=== PATIENT | male | born 1985 | race Asian ===

== ENCOUNTER 2019-09-21 20:28 | Inpatient (IN) | payer OTHER ==
[~2019-09-21] VITALS: Ht 162.6 cm; Wt 87.0 kg
[~2019-09-21 20:28] MED LIST: AMLO5TAB9 PO; ASPI-728 PO; CARV12 PO; DSS100 PO; FURO40 PO; GLIP5 PO; LANCET; LOSA50TA37 PO; SPIR50 PO; TEST STRIPS; [UNRECOGNIZED DRUG - CODE] MC
[2019-09-21] MEDS ORDERED: METOPROLOL TARTRATE 5 MG/5 ML VIAL IVP ONE (20:45)
[2019-09-21] MEDS ORDERED: SODIUM CHLORIDE 0.9% 1,000 ML IV ONE (21:00)
[2019-09-21 21:10] LABS: CALCIUM, TOTAL 9.1 mg/dL (8.8-10.5); CREATININE 2.58 mg/dL (0.60-1.30)
[2019-09-21 21:13] LABS: ALBUMIN 2.8 g/dL (3.4-5.0); BILIRUBIN,TOTAL 0.3 mg/dL (0.1-1.0); TOTAL PROTEIN, SERUM 7.5 g/dL (6.4-8.2)
[2019-09-21 21:16] LABS: EOSINOPHILS % (AUTO) 0 % (1.0-6.0); HEMATOCRIT 52.1 % (41-53); HEMOGLOBIN 16.3 g/dL (13.5-17.5); LYMPHOCYTES # (AUTO) 2.5 K/uL (1.0-4.8); LYMPHOCYTES % (AUTO) 17.1 % (22.0-44.0); MEAN CORPUSCULAR HEMOGLOBIN 27.8 pg (26.0-34.0); MEAN CORPUSCULAR HGB CONC 31.4 G/dL (31.0-37.0); MEAN CORPUSCULAR VOLUME 89 fL (80-100); MONOCYTES # (AUTO) 0.6 K/uL (0.1-1.0); MONOCYTES % (AUTO) 4.2 % (2.0-9.0); NEUTROPHILS # (AUTO) 11.5 K/uL (1.8-7.7); NEUTROPHILS % (AUTO) 77.7 % (40.0-70.0); PLATELET COUNT (AUTO) 378 K/uL (150-450); RED BLOOD CELL COUNT(AUTO) 5.89 MIL/uL (4.50-5.90); RED CELL DISTRIBUTION WIDTH 14.2 % (11.5-14.5)
[2019-09-21] MEDS ORDERED: POTASSIUM CHL 20 MEQ/0.45% NS 1,000 ML IV PRN (21:30)
[2019-09-21] MEDS ORDERED: INSULIN REGULAR, HUMAN 100 UNITS/ML IVP PRN (21:30)
[2019-09-21] MEDS ORDERED: INSULIN REGULAR, HUMAN 100 UNITS in SODIUM CHLORIDE 0.9% 99 ML IV PRN ×2 (21:30)
[2019-09-21] MEDS ORDERED: SODIUM CHLORIDE 0.45% 1,000 ML IV PRN (21:30)
[2019-09-21] MEDS ORDERED: DEXTROSE 5%-0.45% SODIUM CHL 1,000 ML IV PRN (21:30)
[2019-09-21] MEDS ORDERED: DEXTROSE 50%-WATER 25 GM/50 ML SYRINGE IVP PRN (21:30)
[2019-09-21] MEDS ORDERED: ONDANSETRON HCL 4 MG/2 ML VIAL IVP ONE (21:30)
[2019-09-21] MEDS ORDERED: SODIUM CHLORIDE 0.9% 1,000 ML IV SCH (21:30)
[2019-09-21 21:33] LABS: ACETONE,BLOOD TRACE (NEGATIVE)
[2019-09-21 22:51] LABS: BASOPHILS % (AUTO) 0.5 % (0.0-2.0); EOSINOPHILS % (AUTO) 0 % (1.0-6.0); HEMATOCRIT 51.5 % (41-53); HEMOGLOBIN 15.5 g/dL (13.5-17.5); LYMPHOCYTES # (AUTO) 1.1 K/uL (1.0-4.8); LYMPHOCYTES % (AUTO) 6.2 % (22.0-44.0); MEAN CORPUSCULAR HEMOGLOBIN 26.7 pg (26.0-34.0); MEAN CORPUSCULAR HGB CONC 30.2 G/dL (31.0-37.0); MEAN CORPUSCULAR VOLUME 88 fL (80-100); MONOCYTES # (AUTO) 0.8 K/uL (0.1-1.0); MONOCYTES % (AUTO) 4.3 % (2.0-9.0); NEUTROPHILS # (AUTO) 16.2 K/uL (1.8-7.7); PLATELET COUNT (AUTO) 336 K/uL (150-450); RED BLOOD CELL COUNT(AUTO) 5.82 MIL/uL (4.50-5.90); RED CELL DISTRIBUTION WIDTH 14.5 % (11.5-14.5)
[2019-09-21 23:08] LABS: GLUCOSE,POINT OF CARE > 600 MG/DL (70-110)
[2019-09-21 23:08] LABS: GLUCOSE,POINT OF CARE > 600 MG/DL (70-110)
[2019-09-21 23:24] LABS: ALBUMIN 2.5 g/dL (3.4-5.0); BILIRUBIN,TOTAL 0.3 mg/dL (0.1-1.0); CALCIUM, TOTAL 9.2 mg/dL (8.8-10.5); CREATININE 2.49 mg/dL (0.60-1.30); POTASSIUM 4.1 mmol/L (3.5-5.1); TOTAL PROTEIN, SERUM 6.9 g/dL (6.4-8.2)
[2019-09-21 23:55] LABS: APPEARANCE,URINE CLEAR (CLEAR); BILIRUBIN,URINE NEGATIVE (NEGATIVE); GLUCOSE, URINE (UA) >=1000 mg/dL (NEGATIVE); KETONES,URINE 15 mg/dL (NEGATIVE); LEUKOCYTE ESTERASE ,URINE NEGATIVE (NEGATIVE); NITRATE,URINE NEGATIVE (NEGATIVE); OCCULT BLOOD,URINE TRACE (NEGATIVE); PH,URINE 5.5 (5.0-8.0); PROTEIN,URINE SEE CONFIRM (NEGATIVE); UROBILINOGEN,URINE 0.2 mg/dL (<=1.0)
[2019-09-22 00:15] LABS: BACTERIA,URINE None Seen /HPF (None Seen); RBC,URINE 0-2 /HPF (0-2)
[2019-09-22 00:16] LABS: SQUAMOUS EPITHELIAL CELL,UR None Seen /LPF (None Seen); SULFOSALICYLIC ACID,URINE 4+ (Negative)
[2019-09-22 00:29] LABS: GLUCOSE,POINT OF CARE 593 MG/DL (70-110)
[2019-09-22 00:40] LABS: AMPHET/METH SCREEN,URINE NEGATIVE (NEGATIVE); BARBITURATE SCREEN, URINE NEGATIVE (NEGATIVE); BENZODIAZEPINES SCREEN,URINE NEGATIVE (NEGATIVE); CANNABINOID SCREEN,URINE NEGATIVE (NEGATIVE); COCAINE SCREEN,URINE NEGATIVE (NEGATIVE); METHADONE SCREEN, URINE NEGATIVE (NEGATIVE); OPIATE SCREEN,URINE NEGATIVE (NEGATIVE)
[2019-09-22 00:41] LABS: PHENCYCLIDINE SCREEN,URINE NEGATIVE (NEGATIVE)
[2019-09-22 00:47] LABS: CALCIUM, TOTAL 9.1 mg/dL (8.8-10.5); CREATININE 2.42 mg/dL (0.60-1.30)
[2019-09-22 01:39] LABS: GLUCOSE,POINT OF CARE 465 MG/DL (70-110)
[2019-09-22 01:55] LABS: ABG A-A DIFF O2 21.6 mmHg (10-20.0); ABG BASE EXCESS -3.2 mmol/L (-2.0-3.0); ABG CARBOXYHEMOGLOBIN 0.4 % (0.0-1.5); ABG HCO3 22.6 mmol/L (22.0-26.0); ABG METHEMOGLOBIN 0.5 % (0.0-1.5); ABG OXYGEN SATURATION 97.1 % (95.0-98.0); ABG OXYHEMOGLOBIN 96.2 % (94.0-100.0); ABG PCO2 32 mmHg (35-45); ABG PH 7.431 (7.350-7.450); ABG TOTAL HEMOGLOBIN 15.5 G/dL (12.0-18.0); PO2, ARTERIAL BG 89.3 mmHg (92.0-100.0); SITE, BLOOD GAS RT RADIAL; SOURCE, BLOOD GAS ARTERIAL; TEMPERATURE, FAHRENHEIT, BG 98.6 FAHREN (96.0-98.6)
[2019-09-22 02:34] LABS: GLUCOSE,POINT OF CARE 276 MG/DL (70-110)
[2019-09-22 03:00] LABS: CALCIUM, TOTAL 8.7 mg/dL (8.8-10.5); CREATININE 2.06 mg/dL (0.60-1.30); POTASSIUM 3.6 mmol/L (3.5-5.1)
[2019-09-22 03:39] LABS: GLUCOSE,POINT OF CARE 124 MG/DL (70-110)
[2019-09-22 04:47] LABS: GLUCOSE,POINT OF CARE 107 MG/DL (70-110)
[2019-09-22] MEDS ORDERED: ONDANSETRON HCL 4 MG/2 ML VIAL IVP PRN (05:00)
[2019-09-22] MEDS ORDERED: 0.9% SODIUM CHLORIDE 10 ML SYRINGE IVP PRN (05:00)
[2019-09-22] MEDS ORDERED: ACETAMINOPHEN 325 MG TABLET PO PRN (05:00)
[2019-09-22] MEDS ORDERED: MAGNESIUM HYDROXIDE SUSPENSION 30 ML UDCUP PO PRN (05:00)
[2019-09-22] MEDS ORDERED: OxyCODONE HCL/ACETAMINOPHEN 5-325 MG TABLET PO PRN ×2 (05:00)
[2019-09-22 05:43] LABS: GLUCOSE,POINT OF CARE 73 MG/DL (70-110)
[2019-09-22 06:21] LABS: GLUCOSE,POINT OF CARE 102 MG/DL (70-110)
[2019-09-22] MEDS ORDERED: POTASSIUM CHL 10 MEQ/WATER 50 ML IV PRN (06:45)
[2019-09-22] MEDS: SODIUM CHLORIDE 0.9% 1,000 ML IV SCH ×2 (06:45→16:45)
[2019-09-22] MEDS: POTASSIUM CHLORIDE 40 MEQ in SODIUM CHLORIDE 0.45% 1,000 ML IV PRN ×2 (06:45→13:28)
[2019-09-22 06:48] LABS: GLUCOSE,POINT OF CARE 123 MG/DL (70-110)
[2019-09-22 07:00] LABS: CALCIUM, TOTAL 8.4 mg/dL (8.8-10.5); CREATININE 1.76 mg/dL (0.60-1.30)
[2019-09-22 07:04] LABS: BILIRUBIN,TOTAL 0.2 mg/dL (0.1-1.0); MAGNESIUM 2.2 mg/dL (1.80-2.40); PHOSPHORUS 3.6 mg/dL (2.5-4.9); TOTAL PROTEIN, SERUM 5.4 g/dL (6.4-8.2)
[2019-09-22 07:50] LABS: GLUCOSE,POINT OF CARE 135 MG/DL (70-110)
[2019-09-22] MEDS: ASPIRIN 81 MG CHEWABLE TABLET PO SCH (08:34)
[2019-09-22] MEDS: AmLODIPine BESYLATE 5 MG TABLET PO SCH ×2 (08:35→20:30)
[2019-09-22] MEDS: CARVEDILOL 12.5 MG TABLET PO SCH ×3 (09:00→21:43)
[2019-09-22] MEDS ORDERED: LevETIRAcetam 500 MG TABLET PO SCH (09:00)
[2019-09-22] MEDS ORDERED: DOCUSATE SODIUM 100 MG CAPSULE PO SCH (09:00)
[2019-09-22] MEDS ORDERED: LOSARTAN POTASSIUM 50 MG TABLET PO SCH (09:00)
[2019-09-22 09:02] LABS: GLUCOSE,POINT OF CARE 94 MG/DL (70-110)
[2019-09-22 10:02] LABS: GLUCOSE,POINT OF CARE 76 MG/DL (70-110)
[2019-09-22 10:24] LABS: GLUCOSE,POINT OF CARE 78 MG/DL (70-110)
[2019-09-22 11:02] LABS: GLUCOSE,POINT OF CARE 107 MG/DL (70-110)
[2019-09-22] MEDS ORDERED: DOCUSATE SODIUM 100 MG CAPSULE PO PRN (11:15)
[2019-09-22] MEDS: PANTOPRAZOLE SODIUM 40 MG DR TABLET PO SCH (11:48)
[2019-09-22] MEDS ORDERED: HydrALAZINE HCL 20 MG/ML VIAL IVP PRN ×2 (12:00)
[2019-09-22 12:24] LABS: CALCIUM, TOTAL 8.2 mg/dL (8.8-10.5); CREATININE 1.57 mg/dL (0.60-1.30); POTASSIUM 3.7 mmol/L (3.5-5.1)
[2019-09-22 12:27] LABS: GLUCOSE,POINT OF CARE 139 MG/DL (70-110)
[2019-09-22 12:27] LABS: GLUCOSE,POINT OF CARE 137 MG/DL (70-110)
[2019-09-22 13:47] LABS: GLUCOSE,POINT OF CARE 125 MG/DL (70-110)
[2019-09-22 15:43] LABS: GLUCOSE,POINT OF CARE 54 MG/DL (70-110)
[2019-09-22 15:43] LABS: GLUCOSE,POINT OF CARE 140 MG/DL (70-110)
[2019-09-22 15:43] LABS: GLUCOSE,POINT OF CARE 65 MG/DL (70-110)
[2019-09-22] MEDS ORDERED: DEXTROSE 50%-WATER 25 GM/50 ML SYRINGE IVP PRN (16:00)
[2019-09-22] MEDS ORDERED: SODIUM CHLORIDE 0.9% 1,000 ML IV ONE (16:00)
[2019-09-22] MEDS: INSULIN GLARGINE,HUM.REC.ANLOG 100 UNITS/ML SQ SCH ×2 (16:43→21:36)
[2019-09-22] MEDS: INSULIN LISPRO 100 UNITS/ML SQ PRN (17:37)
[2019-09-22 17:44] LABS: GLUCOSE,POINT OF CARE 152 MG/DL (70-110)
[2019-09-22 18:24] LABS: CALCIUM, TOTAL 8.3 mg/dL (8.8-10.5); CREATININE 1.55 mg/dL (0.60-1.30)
[2019-09-22 18:53] LABS: GLUCOSE,POINT OF CARE 229 MG/DL (70-110)
[2019-09-22 19:09] LABS: APPEARANCE,URINE CLOUDY (CLEAR); BILIRUBIN,URINE NEGATIVE (NEGATIVE); GLUCOSE, URINE (UA) 250 mg/dL (NEGATIVE); KETONES,URINE NEGATIVE (NEGATIVE); LEUKOCYTE ESTERASE ,URINE NEGATIVE (NEGATIVE); NITRATE,URINE NEGATIVE (NEGATIVE); OCCULT BLOOD,URINE MODERATE (NEGATIVE); PROTEIN,URINE SEE CONFIRM (NEGATIVE); UROBILINOGEN,URINE 0.2 mg/dL (<=1.0)
[2019-09-22 19:13] LABS: CREATININE,URINE RANDOM 34.6 mg/dL (30.0-125.0); PROTEIN,URINE RANDOM 211 mg/dL (0-11.9)
[2019-09-22 19:18] LABS: BACTERIA,URINE None Seen /HPF (None Seen); RBC,URINE 0-2 /HPF (0-2)
[2019-09-22 19:20] LABS: SQUAMOUS EPITHELIAL CELL,UR None Seen /LPF (None Seen); URIC ACID CRYSTALS,URINE Rare /LPF (None Seen); WBC,URINE 0-2 /HPF (0-5)
[2019-09-22 19:56] LABS: GLUCOSE,POINT OF CARE 257 MG/DL (70-110)
[2019-09-22] MEDS ORDERED: INSULIN GLARGINE,HUM.REC.ANLOG 100 UNITS/ML SQ SCH (21:00)
[2019-09-22 21:14] LABS: GLUCOSE,POINT OF CARE 264 MG/DL (70-110)
[2019-09-22] MEDS: LevETIRAcetam 500 MG in DEXTROSE 5%-WATER 100 ML IV SCH (21:29)
[2019-09-22 21:34] LABS: GLUCOSE,POINT OF CARE 260 MG/DL (70-110)
[2019-09-22 23:45] LABS: GLUCOSE,POINT OF CARE 238 MG/DL (70-110)
[2019-09-23] MEDS: POTASSIUM CHLORIDE 20 MEQ ER TABLET PO PRN (00:13)
[2019-09-23 01:38] LABS: GLUCOSE,POINT OF CARE 220 MG/DL (70-110)
[2019-09-23] MEDS: SODIUM CHLORIDE 0.9% 1,000 ML IV SCH ×3 (01:53→23:59)
[2019-09-23 03:28] LABS: GLUCOSE,POINT OF CARE 184 MG/DL (70-110)
[2019-09-23 04:56] LABS: BASOPHILS % (AUTO) 1.1 % (0.0-2.0); HEMATOCRIT 43.4 % (41-53); HEMOGLOBIN 14.1 g/dL (13.5-17.5); LYMPHOCYTES # (AUTO) 3.4 K/uL (1.0-4.8); LYMPHOCYTES % (AUTO) 29.4 % (22.0-44.0); MEAN CORPUSCULAR HEMOGLOBIN 27.3 pg (26.0-34.0); MEAN CORPUSCULAR HGB CONC 32.5 G/dL (31.0-37.0); MEAN CORPUSCULAR VOLUME 84 fL (80-100); MONOCYTES # (AUTO) 0.6 K/uL (0.1-1.0); NEUTROPHILS # (AUTO) 7.3 K/uL (1.8-7.7); NEUTROPHILS % (AUTO) 63.5 % (40.0-70.0); PLATELET COUNT (AUTO) 279 K/uL (150-450); RED BLOOD CELL COUNT(AUTO) 5.16 MIL/uL (4.50-5.90); RED CELL DISTRIBUTION WIDTH 13.9 % (11.5-14.5)
[2019-09-23 05:23] LABS: CALCIUM, TOTAL 8.2 mg/dL (8.8-10.5); CREATININE 1.4 mg/dL (0.60-1.30); FREE T4 (FREE THYROXINE) 1.03 ng/dL (0.76-1.46); POTASSIUM 3.8 mmol/L (3.5-5.1); THYROID STIMULATING HORMONE 1.31 uIU/mL (0.36-3.74)
[2019-09-23 06:23] LABS: GLUCOSE,POINT OF CARE 140 MG/DL (70-110)
[2019-09-23 09:09] LABS: GLUCOSE,POINT OF CARE 104 MG/DL (70-110)
[2019-09-23] MEDS: ASPIRIN 81 MG CHEWABLE TABLET PO SCH (09:26)
[2019-09-23] MEDS: AmLODIPine BESYLATE 5 MG TABLET PO SCH ×2 (09:26→21:18)
[2019-09-23] MEDS: PANTOPRAZOLE SODIUM 40 MG DR TABLET PO SCH (09:27)
[2019-09-23] MEDS: INSULIN GLARGINE,HUM.REC.ANLOG 100 UNITS/ML SQ SCH ×2 (09:28→21:22)
[2019-09-23] MEDS: LevETIRAcetam 500 MG in DEXTROSE 5%-WATER 100 ML IV SCH (09:50)
[2019-09-23] MEDS: CARVEDILOL 12.5 MG TABLET PO SCH ×2 (11:11→21:18)
[2019-09-23] MEDS: INSULIN LISPRO 100 UNITS/ML SQ PRN ×2 (13:36→21:23)
[2019-09-23 16:20] VITALS: BP 148/104
[2019-09-23] MEDS: LOSARTAN POTASSIUM 25 MG TABLET PO SCH (17:13)
[2019-09-23 19:53] VITALS: BP 157/99
[2019-09-23] MEDS: ATORVASTATIN CALCIUM 20 MG TABLET PO SCH (21:18)
[2019-09-23 21:20] LABS: GLUCOMETER DEV NAME(LOC) 5N.2; GLUCOSE,POINT OF CARE 390 MG/DL (70-110)
[2019-09-23 23:33] VITALS: BP 153/110
[2019-09-24] VITALS (7 sets, daily range): BP systolic 142–158; BP diastolic 89–109
[2019-09-24] MEDS: CARVEDILOL 12.5 MG TABLET PO SCH ×2 (05:23→20:39)
[2019-09-24 05:50] LABS: GLUCOMETER DEV NAME(LOC) 5S.2A; GLUCOSE,POINT OF CARE 51 MG/DL (70-110)
[2019-09-24 05:51] LABS: GLUCOMETER DEV NAME(LOC) 5S.2A; GLUCOSE,POINT OF CARE 41 MG/DL (70-110)
[2019-09-24 05:51] LABS: GLUCOMETER DEV NAME(LOC) 5S.2A; GLUCOSE,POINT OF CARE 172 MG/DL (70-110)
[2019-09-24 05:55] LABS: GLUCOMETER DEV NAME(LOC) 5N.2; GLUCOSE,POINT OF CARE 100 MG/DL (70-110)
[2019-09-24 06:47] LABS: BASOPHILS % (AUTO) 0.8 % (0.0-2.0); EOSINOPHILS % (AUTO) 0.8 % (1.0-6.0); HEMATOCRIT 44.9 % (41-53); HEMOGLOBIN 14.4 g/dL (13.5-17.5); LYMPHOCYTES # (AUTO) 2.6 K/uL (1.0-4.8); LYMPHOCYTES % (AUTO) 22.9 % (22.0-44.0); MEAN CORPUSCULAR HEMOGLOBIN 27.1 pg (26.0-34.0); MEAN CORPUSCULAR VOLUME 85 fL (80-100); MONOCYTES # (AUTO) 0.8 K/uL (0.1-1.0); MONOCYTES % (AUTO) 7.2 % (2.0-9.0); NEUTROPHILS # (AUTO) 7.8 K/uL (1.8-7.7); NEUTROPHILS % (AUTO) 68.3 % (40.0-70.0); PLATELET COUNT (AUTO) 291 K/uL (150-450); RED CELL DISTRIBUTION WIDTH 14.1 % (11.5-14.5)
[2019-09-24 07:04] LABS: ANION GAP 11 mmol/L (8-16); CALCIUM, TOTAL 8.1 mg/dL (8.8-10.5); CARBON DIOXIDE 23 mmol/L (22-29); CHLORIDE 105 mmol/L (98-107); CREATININE 1.33 mg/dL (0.60-1.30); GLOMERULAR FILTR. RATE CALC > 60 mL/min (>60); GLUCOSE,RANDOM 106 mg/dL (70-110); PHOSPHORUS 3.7 mg/dL (2.5-4.9); POTASSIUM 3.2 mmol/L (3.5-5.1); SODIUM SERUM 139 mmol/L (136-145); UREA NITROGEN, BLOOD 15 mg/dL (7-18)
[2019-09-24] MEDS: PANTOPRAZOLE SODIUM 40 MG DR TABLET PO SCH (08:18)
[2019-09-24] MEDS: AmLODIPine BESYLATE 5 MG TABLET PO SCH ×2 (08:18→20:39)
[2019-09-24] MEDS: ASPIRIN 81 MG CHEWABLE TABLET PO SCH (08:18)
[2019-09-24] MEDS: LOSARTAN POTASSIUM 25 MG TABLET PO SCH (08:18)
[2019-09-24] MEDS: POTASSIUM CHLORIDE 20 MEQ ER TABLET PO PRN (08:45)
[2019-09-24] MEDS: INSULIN GLARGINE,HUM.REC.ANLOG 100 UNITS/ML SQ SCH ×2 (08:50→20:45)
[2019-09-24] MEDS ORDERED: POTASSIUM CHLORIDE 20 MEQ ER TABLET PO ONE ×2 (09:30→10:00)
[2019-09-24] MEDS ORDERED: MAGNESIUM SULFATE 2 GM/WATER 50 ML IV ONE (10:00)
[2019-09-24 11:45] LABS: GLUCOMETER DEV NAME(LOC) 5N.2; GLUCOSE,POINT OF CARE 214 MG/DL (70-110)
[2019-09-24 11:45] LABS: GLUCOMETER DEV NAME(LOC) 5N.2; GLUCOSE,POINT OF CARE 139 MG/DL (70-110)
[2019-09-24] MEDS: INSULIN LISPRO 100 UNITS/ML SQ PRN ×3 (12:18→20:46)
[2019-09-24] MEDS ORDERED: GADOBUTROL 1 MMOL/ML 10 ML VIAL IVP ONE (14:28)
[2019-09-24 14:46] LABS: GLUCOSE,POINT OF CARE 221 MG/DL (70-110)
[2019-09-24 18:14] LABS: GLUCOMETER DEV NAME(LOC) 5N.2; GLUCOSE,POINT OF CARE 155 MG/DL (70-110)
[2019-09-24] MEDS: ATORVASTATIN CALCIUM 20 MG TABLET PO SCH (20:39)
[2019-09-24] MEDS: LevETIRAcetam 500 MG TABLET PO SCH (20:39)
[2019-09-25 05:01] VITALS: BP 155/97
[2019-09-25] MEDS: INSULIN LISPRO 100 UNITS/ML SQ PRN ×2 (06:33→12:43)
[2019-09-25 07:30] LABS: BASOPHILS % (AUTO) 0.5 % (0.0-2.0); EOSINOPHILS % (AUTO) 1.3 % (1.0-6.0); HEMATOCRIT 44.3 % (41-53); HEMOGLOBIN 14.6 g/dL (13.5-17.5); LYMPHOCYTES # (AUTO) 1.2 K/uL (1.0-4.8); LYMPHOCYTES % (AUTO) 14.9 % (22.0-44.0); MEAN CORPUSCULAR HEMOGLOBIN 27.7 pg (26.0-34.0); MEAN CORPUSCULAR HGB CONC 32.9 G/dL (31.0-37.0); MEAN CORPUSCULAR VOLUME 84 fL (80-100); MONOCYTES # (AUTO) 0.5 K/uL (0.1-1.0); MONOCYTES % (AUTO) 6.3 % (2.0-9.0); PLATELET COUNT (AUTO) 306 K/uL (150-450); RED BLOOD CELL COUNT(AUTO) 5.26 MIL/uL (4.50-5.90); RED CELL DISTRIBUTION WIDTH 14.1 % (11.5-14.5)
[2019-09-25 08:06] LABS: ALBUMIN 1.8 g/dL (3.4-5.0); BILIRUBIN,TOTAL 0.4 mg/dL (0.1-1.0); CALCIUM, TOTAL 8.8 mg/dL (8.8-10.5); CREATININE 1.63 mg/dL (0.60-1.30); POTASSIUM 4.3 mmol/L (3.5-5.1); TOTAL PROTEIN, SERUM 5.6 g/dL (6.4-8.2)
[2019-09-25] MEDS: LOSARTAN POTASSIUM 25 MG TABLET PO SCH (08:17)
[2019-09-25] MEDS: AmLODIPine BESYLATE 5 MG TABLET PO SCH (08:17)
[2019-09-25] MEDS: ASPIRIN 81 MG CHEWABLE TABLET PO SCH (08:17)
[2019-09-25] MEDS: PANTOPRAZOLE SODIUM 40 MG DR TABLET PO SCH (08:17)
[2019-09-25] MEDS: LevETIRAcetam 500 MG TABLET PO SCH (08:17)
[2019-09-25] MEDS: CARVEDILOL 12.5 MG TABLET PO SCH (08:17)
[2019-09-25] MEDS: INSULIN GLARGINE,HUM.REC.ANLOG 100 UNITS/ML SQ SCH (08:21)
[2019-09-25 09:05] VITALS: BP 154/98
[2019-09-25 10:58] VITALS: BP 151/99
[2019-09-25] MEDS ORDERED: ATOR20TA86 PO (15:03)
[2019-09-25] MEDS ORDERED: INSLAN SQ (15:05)
[2019-09-25 15:47] VITALS: BP 150/96
[2019-09-25 19:46] LABS: GLUCOMETER DEV NAME(LOC) 5S.2A; GLUCOSE,POINT OF CARE 186 MG/DL (70-110)
[2019-09-25 19:46] LABS: GLUCOMETER DEV NAME(LOC) 5S.2A; GLUCOSE,POINT OF CARE 294 MG/DL (70-110)
[2019-09-25 19:46] LABS: GLUCOMETER DEV NAME(LOC) 5S.2A; GLUCOSE,POINT OF CARE 135 MG/DL (70-110)
[2019-09-25 19:47] LABS: GLUCOMETER DEV NAME(LOC) 5S.2A; GLUCOSE,POINT OF CARE 205 MG/DL (70-110)
[2019-09-26] MEDS ORDERED: LOSARTAN POTASSIUM 50 MG TABLET PO SCH (09:00)
== END 2019-09-25 16:45 | disposition home or self-care (01) | DRG 420 ==
LOC: EMS 20:28 → ICU 09-23 05:30 → ICUN 09-23 05:31 → 5S 09-23 14:46
PROVIDERS: ADMIT Internal Medicine; ATTEND Internal Medicine
DX: E11.10 Type 2 diabetes mellitus with ketoacidosis without coma (principal); E43 Unspecified severe protein-calorie malnutrition; N18.4 Chronic kidney disease, stage 4 (severe); R65.10 Systemic inflammatory response syndrome (SIRS) of non-infectious origin without acute organ dysfunction; E87.2 Acidosis; N17.9 Acute kidney failure, unspecified; E87.1 Hypo-osmolality and hyponatremia; I12.9 Hypertensive chronic kidney disease with stage 1 through stage 4 chronic kidney disease, or unspecified chronic kidney disease; I16.0 Hypertensive urgency; E87.6 Hypokalemia; G40.89 Other seizures; F14.90 Cocaine use, unspecified, uncomplicated; I16.1 Hypertensive emergency; E78.5 Hyperlipidemia, unspecified; Z68.32 Body mass index [BMI] 32.0-32.9, adult
CPT/HCPCS: 70450; 70553; 82570; 82805; 83036; 83735; 84100; 84145; 84156; 84439; 84443; 87040; 93005; 99291; A9585; G0480; J0360; J0712; J1815; J2405; J3475; J3480; J3490; J7030; J7050; J7060